=== PATIENT | male | born 1970 ===

== ENCOUNTER 2023-08-29 16:45 | Emergency (ER) | payer OTHER, BC ==
[2023-08-29] MEDS: Lidocaine 4% 1 each Patch TOP STA (18:16)
[2023-08-29] MEDS: Methocarbamol 750 MG Tab PO STA (18:17)
[2023-08-29 18:53] VITALS: BP 131/85; PULSE 91
== END 2023-08-29 18:52 | disposition home or self-care (01) ==
LOC: MW.ED 16:45
DX: S46.911A Strain of unspecified muscle, fascia and tendon at shoulder and upper arm level, right arm, initial encounter (principal); I10 Essential (primary) hypertension; F17.210 Nicotine dependence, cigarettes, uncomplicated; Z79.899 Other long term (current) drug therapy; W19.XXXA Unspecified fall, initial encounter
CPT/HCPCS: 73030; 99283; A9270